=== PATIENT | male | born 1960 | race Caucasian/White ===

== ENCOUNTER 2022-08-06 16:48 | Emergency (ER) | payer OTHER ==
[~2022-08-06] VITALS: Ht 177 cm; Wt 82.0 kg
[2022-08-06] MEDS ORDERED: morphine INJ 10 MG/ML 1ML (SYR OR VIAL) IVP STA ×2 (16:56→17:59)
--- NOTE | 2022-08-06 17:06 | ED Fall/Injury ---
General Chief Complaint: Trauma-Non Activation Stated Complaint: LEFT SHOLDER PAIN / FELL AT HOME Nursing Triage Note: PT TO RM 6 PER W/C PT FELL AT HOME INJURING R SHOULDER RATES PAIN 10/10. PT STATES HIT BACK OF HEAD BUT NO LOC Source: patient Exam Limitations: clinical condition (CURT DANG MD) History of Present Illness Date Seen by Provider: Aug 06, 2022 Time Seen by Provider: 16:55 Initial Comments 62-year-old male presents to the emergency room with a chief complaint of left shoulder pain after a fall at home. Patient was chasing his dog who was trying to eat a mouse trap. He tripped, fell forward onto his head and left shoulder. He complains of severe pain in the anterior and posterior left shoulder joint. No numbness tingling in the hand. No other complaints of injury. Not have a loss of consciousness. Occurred: just prior to arrival Severity: severe Injuries/Pain Location: upper extremity (left shoulder) Context: tripped Loss of Consciousness: no loss of consciousness Modifying Factors: Worse With Jarring, Worse With Movement Associated Symptoms (Fall): Denies Symptoms (CURT DANG MD) Allergies and Home Medications Allergies Coded Allergies: No Known Drug Allergies (Unverified , 08/06/22) Patient Home Medication List Home Medication List Reviewed: Yes (CURT DANG MD) Tramadol HCl (Tramadol HCl) 50 Mg Tablet, 50 MG PO Q6H PRN for PAIN Prescribed by: CURT DANG on 08/06/22 7775 Review of Systems Review of Systems Constitutional: see HPI Eyes: No Symptoms Reported Ears, Nose, Mouth, Throat: no symptoms reported Respiratory: short of breath Cardiovascular: no symptoms reported Gastrointestinal: no symptoms reported Musculoskeletal: joint pain (left ) Psychiatric/Neurological: Anxiety (CURT DANG MD) All Other Systems Reviewed Negative Unless Noted: Yes (CURT DANG MD) Physical Exam Vital Signs Vital Signs - First Documented 08/06/22 16:50 Temp 36.7 Pulse 68 Resp 18 B/P (MAP) 153/84 (107) Pulse Ox 99 (BELA,JAG K DO) Vital Signs Capillary Refill : Less Than 3 Seconds (CURT DANG MD) Height, Weight, BMI Height: '" Weight: lbs. oz. kg; 26.00 BMI Method: General Appearance: WD/WN, severe distress (anxious/hyperventilating) HEENT: PERRL/EOMI Cardiovascular: regular rate, rhythm Respiratory: lungs clear, normal breath sounds, other (hyperventilating) Gastrointestinal: non tender, soft Extremities: normal inspection, other (tenderness along the clavicle on the left; tender around the shoulder joint, A/P; unable to perform active ROM due to pain; patient manifests pain with even light touch over the lateral shoulder) Neurologic/Psychiatric: no motor/sensory deficits, alert, oriented x 3 Skin: normal color, warm/dry (CURT DANG MD) Progress/Results/Core Measures Results/Orders My Orders Orders - JAG CRAMER DO Chest 1 View, Ap/Pa Only (08/06/22 18:32) Shoulder, Bilateral, 3 Views (08/06/22 18:32) (JAG CRAMER DO) Vital Signs/I&O 08/06/22 16:50 Temp 36.7 Pulse 68 Resp 18 B/P (MAP) 153/84 (107) Pulse Ox 99 (JAG CRAMER DO) Blood Pressure Mean: 107 Progress Progress Note : Progress Note 1830--ASKED BY RN TO RE-EVALUATE PT'S LEFT SHOULDER AREA. PT WITH MARKEDLY EXAGGERATED PAIN RESPONSE, AND THERE IS GROSS DEFORMITY PRESENT TO LEFT SHOULDER/CLAVICLE AREA, WITH APPEARANCE OF A-C SEPARATION ON EXAM. DISTAL MOTOR/SENSORY/VASCULAR IS INTACT. ADDITIONAL XRAYS ORDERED. REVIEWED REPEAT XRAY STUDIES WITH PT AND FAMILY TREATMENT PREVIOUSLY ARRANGED IS UNCHANGED. PT IS TO CONTINUE WITH SLING/SHOULDER IMMOBILIZER, PAIN MEDICATIONS, ICE, AND ORTHOPEDIC SURGERY FOLLOW UP. DISCUSSED ANTICIPATED COURSE WITH PT AND FAMILY (JAG CRAMER DO) Diagnostic Imaging Diagonstic Imaging: Xray Comments [facility], [place] NAME: ERNAJASPAL Styles [facility] REC#: [id number] PT STATUS: REG ER : 1960 PHYSICIAN: CURT DANG MD ADMIT DATE: 08/06/22/ER Draft Date of Exam:08/06/22 SHOULDER, LEFT, 3 VIEWS EXAMINATION: Left shoulder radiographs, 3 views. COMPARISON: None. HISTORY: 62-year-old male, left shoulder pain after fall. FINDINGS: The acromioclavicular joint is normally aligned. There are very mild acromioclavicular degenerative changes. The humeral head is normally positioned relative to the glenoid. The glenohumeral joint space is well maintained. There is no identified acute fracture. IMPRESSION: 1. No identified acute bony abnormality of the left shoulder. 2. Very mild acromioclavicular degenerative changes. Dictated on workstation # [id number] Dict: 08/06/22 1717 Trans: 08/06/22 1735 PJE [id number] Interpreted by: CHUN LANDRUM MD Electronically signed by: (CURT DANG MD) Comments ALL PER RADIOLOGIST REPORTS AT 1906 CXR-- FINDINGS: There is widening of the left acromioclavicular joint. The left distal clavicle is also superiorly subluxed and there is widening of the coracoclavicular distance. Heart size and mediastinal contours are unremarkable. There is no identified pneumothorax. There is no large pleural effusion. There is no identified focal airspace consolidation. IMPRESSION: 1. Findings compatible with at least a grade 2 left acromioclavicular joint separation injury. 2. No identified acute cardiopulmonary abnormality. BILATERAL SHOULDER XRAYS. AP, oblique and transscapular views of both shoulders are obtained. Comparison is made to left shoulder study of 08/06/2022. Right shoulder: There is mild marginal spurring at the acromioclavicular joint. Otherwise no fracture or malalignment is identified. There is no lytic or sclerotic lesion. Left shoulder: There is significant elevation of distal clavicle with the coracoclavicular interval exceeding 1.8 cm. There is also significant widening of the acromioclavicular joint. No other acute fracture or malalignment is identified. IMPRESSION: Significant ligamentous disruption at the coracoclavicular space with high-grade acromioclavicular separation. No other acute abnormality seen in either shoulder. Reviewed: Reviewed by Me (JAG CRAMER DO) Departure Impression Primary Impression: Separation of left acromioclavicular joint Additional Impression: Shoulder joint derangement Disposition: HOME, SELF-CARE Condition: Stable Departure-Patient Inst. Decision time for Depature: 19:07 (JAG CRAMER DO) Referrals: LESLIE OLEA APRN (PCP) Primary Care Physician LUIS LAWSON MD Patient Instructions: Shoulder Pain ED, Shoulder Add. Discharge Instructions: Use an ice pack on the left shoulder off-and-on for the next 24 to 48 hours. Wear the sling AT ALL TIMES You can take extra strength Tylenol 2 every 6 hours to help your pain meds work. Use the tramadol 1 pill every 6 hours for more severe pain. Please call Dr. Lawson's office tomorrow for a follow-up appointment next week. Return to the emergency department for any new, concerning or emergent complaints. Scripts Tramadol HCl (Tramadol HCl) 50 Mg Tablet 50 MG PO Q6H PRN for PAIN, #12 TAB 0 Refills Prov: CURT DANG MD 08/06/22 Copy Copies To 1: LUIS LAWSON MD, KATHRYN M MD Aug 06, 2022 17:06 JAG CRAMER DO Aug 06, 2022 18:34
--- NOTE | 2022-08-06 17:35 | Diagnostic Imaging Report ---
EXAMINATION: Left shoulder radiographs, 3 views. COMPARISON: None. HISTORY: 62-year-old male, left shoulder pain after fall. FINDINGS: The acromioclavicular joint is normally aligned. There are very mild acromioclavicular degenerative changes. The humeral head is normally positioned relative to the glenoid. The glenohumeral joint space is well maintained. There is no identified acute fracture. IMPRESSION: 1. No identified acute bony abnormality of the left shoulder. 2. Very mild acromioclavicular degenerative changes. Dictated by: Dictated on workstation # [id number]
[2022-08-06] MEDS ORDERED: KETOROLAC 30 MG/ML VIAL IVP ONE (17:45)
[2022-08-06] MEDS ORDERED: TRM50T PO (17:57)
--- NOTE | 2022-08-06 18:59 | Diagnostic Imaging Report ---
EXAMINATION: Chest radiograph, portable AP view. DATE: 08/06/2022 6:52 PM INDICATION: 62-year-old male, pain and deformity of the left acromioclavicular joint. Chest pain. COMPARISON: None. FINDINGS: There is widening of the left acromioclavicular joint. The left distal clavicle is also superiorly subluxed and there is widening of the coracoclavicular distance. Heart size and mediastinal contours are unremarkable. There is no identified pneumothorax. There is no large pleural effusion. There is no identified focal airspace consolidation. IMPRESSION: 1. Findings compatible with at least a grade 2 left acromioclavicular joint separation injury. 2. No identified acute cardiopulmonary abnormality. Dictated by: Dictated on workstation # [id number]
--- NOTE | 2022-08-06 19:00 | Diagnostic Imaging Report ---
INDICATION: Bilateral shoulder injuries AP, oblique and transscapular views of both shoulders are obtained. Comparison is made to left shoulder study of 08/06/2022. Right shoulder: There is mild marginal spurring at the acromioclavicular joint. Otherwise no fracture or malalignment is identified. There is no lytic or sclerotic lesion. Left shoulder: There is significant elevation of distal clavicle with the coracoclavicular interval exceeding 1.8 cm. There is also significant widening of the acromioclavicular joint. No other acute fracture or malalignment is identified. IMPRESSION: Significant ligamentous disruption at the coracoclavicular space with high-grade acromioclavicular separation. No other acute abnormality seen in either shoulder. Dictated by: Dictated on workstation # [id number]
[2022-08-06 19:24] VITALS: BP 153/84
== END 2022-08-06 19:23 | disposition home or self-care (01) ==
LOC: ER 16:55
DX: S43.102A Unspecified dislocation of left acromioclavicular joint, initial encounter (principal); W01.198A Fall on same level from slipping, tripping and stumbling with subsequent striking against other object, initial encounter; Y92.009 Unspecified place in unspecified non-institutional (private) residence as the place of occurrence of the external cause
CPT/HCPCS: 71045; 73030